=== PATIENT | male | born 1950 | race Caucasian/White ===

== ENCOUNTER 2018-09-16 02:55 | Emergency (ER) | payer MEDICARE, OTHER ==
[~2018-09-16] VITALS: Ht 175.3 cm; Wt 88.5 kg
[2018-09-16 02:59] VITALS: BP 148/90
== END 2018-09-16 07:10 | disposition home or self-care (01) ==
LOC: ED 06:36
DX: S09.8XXA Other specified injuries of head, initial encounter (principal); R51 Headache; F17.210 Nicotine dependence, cigarettes, uncomplicated; W18.30XA Fall on same level, unspecified, initial encounter; Y93.89 Activity, other specified; Y99.8 Other external cause status; Y92.89 Other specified places as the place of occurrence of the external cause
CPT/HCPCS: 70450; 99284